=== PATIENT | female | born 1990 | race Hispanic/Latino ===

== ENCOUNTER 2017-06-03 11:24 | Emergency (ER) | payer SELFPAY | END 2017-06-03 12:11 | disposition home or self-care (01) | LOC: ERS 11:24 | DX: H10.9 Unspecified conjunctivitis (principal); F31.9 Bipolar disorder, unspecified; F41.9 Anxiety disorder, unspecified; Z86.73 Personal history of transient ischemic attack (TIA), and cerebral infarction without residual deficits | CPT/HCPCS: 99282 ==

== ENCOUNTER 2017-08-09 18:58 | Emergency (ER) | payer SELFPAY ==
--- NOTE | 2017-08-09 19:57 | RAD ---
LEFT ANKLE THREE VIEWS: 08/09/17 HISTORY: Injury, left ankle pain. FINDINGS/IMPRESSION: The ankle mortise is maintained. No acute fracture or dislocation is identified. POS: [facility]
--- NOTE | 2017-08-09 19:58 | RAD ---
LEFT FOOT THREE VIEWS: 08/09/17 HISTORY: Left foot pain, injury. FINDINGS/IMPRESSION: No acute fracture or dislocation is identified. POS: [facility]FIN[facility]
== END 2017-08-09 20:33 | disposition home or self-care (01) ==
LOC: ERS 18:58
DX: S93.412A Sprain of calcaneofibular ligament of left ankle, initial encounter (principal); F41.9 Anxiety disorder, unspecified; F31.9 Bipolar disorder, unspecified; Z86.73 Personal history of transient ischemic attack (TIA), and cerebral infarction without residual deficits; X50.1XXA Overexertion from prolonged static or awkward postures, initial encounter

== ENCOUNTER 2018-01-04 10:45 | Emergency (ER) | payer SELFPAY ==
[2018-01-04] MEDS ORDERED: Ibuprofen 800 MG TAB ONE (11:14)
[2018-01-04] MEDS ORDERED: Bicillin LA 1.2 MILLION UNITS/2 ML SYRINGE ONE (11:56)
== END 2018-01-04 12:56 | disposition home or self-care (01) ==
LOC: ERS 10:45
DX: J02.0 Streptococcal pharyngitis (principal)
CPT/HCPCS: 87430; 96360; 96372; J0561

== ENCOUNTER 2018-01-06 09:15 | Emergency (ER) | payer SELFPAY | END 2018-01-06 10:35 | disposition home or self-care (01) | LOC: ERS 09:15 | DX: J02.0 Streptococcal pharyngitis (principal) | CPT/HCPCS: 87070; 99283 ==

== ENCOUNTER 2018-02-22 08:03 | Emergency (ER) | payer SELFPAY ==
[2018-02-22 08:31] LABS: Bilirubin Negative (Negative); Blood, Urine Small (Negative); Clarity CLEAR (Clear); Glucose, Urine (Dipstick) Negative (Negative); Leukocyte Negative (Negative); Nitrite Negative (Negative); Protein, Urine (Dipstick) Negative (Neg-Trace); Specific Gravity, Urine 1.021 (1.002-1.036); Urobilinogen 0.2 mg/dL (0.2-1.0); pH, Urine 5.5 (5.0-9.0)
[2018-02-22 08:32] LABS: #Basophils 0.1 thou/uL (0.0-0.2); #Eosinphils 0.1 thou/uL (0.0-0.7); #Lymphocytes 4.2 thou/uL (1.20-3.40); #Monocytes 0.6 thou/uL (0.11-0.59); %Basophils 0.6 % (0.0-1.0); %Lymphocytes 42.3 % (21.0-51.0); %Monocytes 5.6 % (0.0-10.0); %Neutrophils 50.5 % (42.0-75.0); Hemoglobin 13.1 g/dL (12.0-16.0); Mean Corpuscular HGB CONC 33.5 g/dL (32.0-36.0); Mean Corpuscular Volume 89.5 fL (78.0-98.0); Mean Platelet Volume 8.5 fL (7.4-10.4); Platelet Count 279 thou/uL (130-400); Red Blood Cell (RBC) Count 4.39 mill/uL (4.20-5.40); White Blood Cell (WBC) Count 9.8 thou/uL (4.8-10.8)
[2018-02-22 08:33] LABS: Bacteria/HPF Rare-Few HPF (None Seen); Hyaline Casts/LPF 0-3 HYALINE CAST LPF (0-3 Hyaline); Pathc Cast-AUWi Flag 0.72 (0-2.49); WBC/HPF 0-3 HPF (0-3)
[2018-02-22 08:39] LABS: BHCG - Serum Negative (NEGATIVE); Pregs Control Background? CLEAR/WHITE (CLR/WHITE); Pregs Control Bar Appear? YES (CONTROL BAR)
[2018-02-22 08:50] LABS: ALT (SGPT) 61 U/L (8-55); AST (SGOT) 24 U/L (5-34); Albumin 4.5 g/dL (3.5-5.0); Alkaline Phosphatase 51 U/L (40-150); Anion Gap 12 mmol/L (10-20); BUN (Urea Nitrogen) 9 mg/dL (7.0-18.7); Bilirubin, Total 0.7 mg/dL (0.2-1.2); Calc. Creatinine Clearance 0 mL/min (70-130); Calcium 9.6 mg/dL (7.8-10.44); Carbon Dioxide 25 mmol/L (22-29); Chloride 106 mmol/L (98-107); Estimated GFR-MDRD Greater than 90; Globulin 3.1 g/dL (2.4-3.5); Glucose 100 mg/dL (70-105); Potassium 4.2 mmol/L (3.5-5.1); Protein, Total 7.6 g/dL (6.0-8.3); Sodium 139 mmol/L (136-145)
== END 2018-02-22 10:02 | disposition home or self-care (01) ==
LOC: ERS 08:03
DX: R42 Dizziness and giddiness (principal)
CPT/HCPCS: 36415; 80053; 81003; 81015; 84703; 85025; 93005

== ENCOUNTER 2019-02-13 11:25 | Emergency (ER) | payer SELFPAY | END 2019-02-13 13:53 | disposition left against medical advice (07) | LOC: ERS 11:25 | DX: M79.672 Pain in left foot (principal); F41.9 Anxiety disorder, unspecified; F32.9 Major depressive disorder, single episode, unspecified; Z86.73 Personal history of transient ischemic attack (TIA), and cerebral infarction without residual deficits | CPT/HCPCS: 99283 ==

== ENCOUNTER 2019-03-08 06:36 | Emergency (ER) | payer SELFPAY | END 2019-03-08 09:08 | disposition home or self-care (01) | LOC: ERS 06:36 | DX: B34.9 Viral infection, unspecified (principal); F41.9 Anxiety disorder, unspecified; F31.9 Bipolar disorder, unspecified; Z86.73 Personal history of transient ischemic attack (TIA), and cerebral infarction without residual deficits | CPT/HCPCS: 87081; 87430; 87804; 99283 ==

== ENCOUNTER 2019-06-14 05:32 | Emergency (ER) | payer SELFPAY ==
[2019-06-14] MEDS ORDERED: Acetaminophen 500 MG TAB ONE ×2 (06:07→06:08)
== END 2019-06-14 06:28 | disposition home or self-care (01) ==
LOC: ERS 05:32
DX: J10.1 Influenza due to other identified influenza virus with other respiratory manifestations (principal); D64.9 Anemia, unspecified; Z86.73 Personal history of transient ischemic attack (TIA), and cerebral infarction without residual deficits; F41.9 Anxiety disorder, unspecified; F31.9 Bipolar disorder, unspecified
CPT/HCPCS: 87804; 99283

== ENCOUNTER 2020-03-13 18:23 | Emergency (ER) | payer SELFPAY | END 2020-03-13 19:38 | disposition home or self-care (01) | LOC: ERS 18:23 | DX: L25.9 Unspecified contact dermatitis, unspecified cause (principal) | CPT/HCPCS: 99282 ==

== ENCOUNTER 2020-09-12 17:47 | Emergency (ER) | payer SELFPAY | END 2020-09-12 18:18 | disposition home or self-care (01) | LOC: ERS 17:47 | DX: J30.9 Allergic rhinitis, unspecified (principal); J02.9 Acute pharyngitis, unspecified; D64.9 Anemia, unspecified; Z86.73 Personal history of transient ischemic attack (TIA), and cerebral infarction without residual deficits | CPT/HCPCS: 99283 ==

== ENCOUNTER 2021-04-04 12:35 | Emergency (ER) | payer OTHER, SELFPAY ==
[2021-04-04] MEDS ORDERED: Acetaminophen 325 MG TAB ONE (13:57)
[2021-04-04] MEDS ORDERED: Ondansetron ODT 4 MG TAB ONE (13:57)
[2021-04-04 18:52] LABS: SARS-CoV-2 PCR by NAA Not Detected (NotDetected)
== END 2021-04-04 17:51 | disposition home or self-care (01) ==
LOC: ERS 12:35
DX: J11.1 Influenza due to unidentified influenza virus with other respiratory manifestations (principal); Z20.822 Contact with and (suspected) exposure to COVID-19
CPT/HCPCS: 87081; 87430; 87804; 99284; Q0162; U0003; U0005

== ENCOUNTER 2022-07-18 11:18 | Emergency (ER) | payer MEDICAID, OTHER, SELFPAY ==
[2022-07-18] MEDS ORDERED: Ketorolac Tromethamine 30 MG/ML VIAL ONE (11:53)
[2022-07-18] MEDS ORDERED: Metoclopramide HCl 10 MG TAB ONE (11:56)
== END 2022-07-18 12:46 | disposition home or self-care (01) ==
LOC: ERS 11:18
DX: R51.9 Headache, unspecified (principal); Z20.822 Contact with and (suspected) exposure to COVID-19
CPT/HCPCS: 96372; 99284; J1885; U0003; U0005

== ENCOUNTER 2022-07-20 12:15 | Emergency (ER) | payer MEDICAID, SELFPAY ==
[2022-07-20] MEDS ORDERED: Metoclopramide HCl 10 MG/2 ML VIAL ONE (13:03)
[2022-07-20] MEDS ORDERED: Ketorolac Tromethamine 30 MG/ML VIAL ONE (13:03)
[2022-07-20] MEDS ORDERED: Acetaminophen 500 MG TAB ONE (13:03)
[2022-07-20] MEDS ORDERED: diphenhydrAMINE 50 MG/ML VIAL ONE (13:03)
[2022-07-20 13:31] LABS: #Eosinphils 0.1 thou/uL (0.0-0.7); #Lymphocytes 2.1 thou/uL (1.20-3.40); #Monocytes 0.5 thou/uL (0.11-0.59); #Neutrophils 3.8 thou/uL (1.40-6.50); %Basophils 0.6 % (0.0-1.0); %Eosinophils 1.2 % (0.0-10.0); %Lymphocytes 31.7 % (21.0-51.0); %Monocytes 7.7 % (0.0-10.0); %Neutrophils 58.8 % (42.0-75.0); Hemoglobin 13.1 g/dL (12.0-16.0); Mean Corpuscular HGB CONC 35.2 g/dL (32.0-36.0); Mean Corpuscular Hemoglobin 31.8 pg (27.0-31.0); Mean Corpuscular Volume 90.4 fl (78.0-98.0); Platelet Count 239 10x3/uL (130-400); RBC Distribution Width 11.7 % (11.5-14.5); Red Blood Cell (RBC) Count 4.11 mill/uL (4.20-5.40); White Blood Cell (WBC) Count 6.5 10x3/uL (4.8-10.8)
[2022-07-20 13:51] LABS: ALT (SGPT) 35 U/L (8-55); AST (SGOT) 24 U/L (5-34); Albumin 4.4 g/dL (3.5-5.0); Alkaline Phosphatase 56 U/L (40-110); Anion Gap 14 mmol/L (10-20); BUN (Urea Nitrogen) 4 mg/dL (7.0-18.7); Bilirubin, Total 0.5 mg/dL (0.2-1.2); Calc. Creatinine Clearance 0 mL/min (70-130); Calcium 9.4 mg/dL (7.8-10.44); Carbon Dioxide 22 mmol/L (22-29); Chloride 107 mmol/L (98-107); Estimated GFR 120; Globulin 3.3 g/dL (2.4-3.5); Glucose 93 mg/dL (70-105); Potassium 3.8 mmol/L (3.5-5.1); Protein, Total 7.7 g/dL (6.0-8.3); Sodium 139 mmol/L (136-145)
== END 2022-07-20 14:24 | disposition home or self-care (01) ==
LOC: ERS 12:15
DX: B34.9 Viral infection, unspecified (principal)
CPT/HCPCS: 70450; 80053; 85025; 96365; 96375; J1200; J1885; J2765